=== PATIENT | female | born 1955 | race Caucasian/White ===

== ENCOUNTER → 2019-11-11 | Outpatient (CLI) | payer OTHER ==
--- NOTE | 2019-11-11 11:23 | RADIOLOGY REPORT (SQ) ---
EXAM DESCRIPTION: U/S RETROPERITON (RENAL/AORTA) IMAGES COMPLETED DATE/TIME: 11/11/2019 8:45 am REASON FOR STUDY: I15.0 RENOVASCULAR HYPERTENSION I70.1 ATHEROSCLEROSIS OF RENAL ARTERY I15.0 SHARON VASCULAR HYPERTENSION COMPARISON: None. TECHNIQUE: Realtime and static grayscale images acquired. Selected color Doppler, velocities and spe ctral images recorded. LIMITATIONS: None. FINDINGS: RIGHT KIDNEY: RENAL ARTERY VELOCITIES: 116.3 - 142.7 cm/sec. Segmental artery velocity: 97 cm/sec. RENAL VEIN: Patent. VELOCITY RATIO: 2.1. KIDNEY: The kidney is atrophic and it measures 7.3 cm in length. There is no hydronephrosis. LEFT KIDNEY: RENAL ARTERY VELOCITIES: 74 - 105.8 cm/sec. Segmental artery velocity: 77.9 cm/sec. RENAL VEIN: Patent. VELOCITY RATIO: 1.6. KIDNEY: The right kidney measures 11.6 cm in length. There is no hydronephrosis. AORTA: The mid abdominal aorta measures 2 cm in AP diameter. The PSV in the vessel is 67.6 cm/sec. OTHER: No other finding. IMPRESSION: ASYMMETRIC ATROPHY OF THE RIGHT KIDNEY. THERE IS NO DOPPLER EVIDENCE OF A HEMODYNAMICAL LY SIGNIFICANT RENAL ARTERY STENOSIS. COMMENT: NORMAL RENAL ARTERY/AORTA VELOCITY RATIO IS LESS THAN OR EQUAL TO 3.5. TECHNICAL DOCUMENTATION: JOB ID: [id number] 2010 [employer]- All Rights Reserved Reading location - IP/workstation name: [email or web address]
== END ==
LOC: RAD 07:47
PROVIDERS: ATTEND Student in an Organized Health Care Education/Training Program
DX: I15.0 Renovascular hypertension (principal); I70.1 Atherosclerosis of renal artery
CPT/HCPCS: 76770